=== PATIENT | male | born 1945 | race Caucasian/White ===

== ENCOUNTER 2023-02-12 08:39 | Day surgery (SDC) | payer MEDICARE ==
[~2023-02-12] VITALS: Ht 180.3 cm; Wt 92.6 kg
[~2023-02-12 08:39] MED LIST: ACET-1131 PO; ARED 2 PO; CALC-627 PO; CETI-194 PO; CYAN250010 PO; FERR240T15 PO; GUAI120015 PO; [UNRECOGNIZED DRUG - CODE] PO
[2023-02-12 09:00] VITALS: BP 132/71
[2023-02-12] MEDS ORDERED: normal saline 1000ml 1,000 ML IV PRN (09:00)
[2023-02-12 09:36] LABS: BASOPHILS # (AUTO) 0.1 X10'3 (0-0.2); BASOPHILS % (AUTO) 1.7 % (0-1); EOSINOPHILS # (AUTO) 0.2 X10'3 (0-0.9); EOSINOPHILS % (AUTO) 4.2 % (0-6); HEMATOCRIT 41.7 % (42.0-52.0); HEMOGLOBIN 13.6 g/dl (14.0-17.9); LYMPHOCYTES # (AUTO) 0.6 X10'3 (1.1-4.8); LYMPHOCYTES % (AUTO) 12.9 % (21-51); MEAN CORPUSCULAR HEMOGLOBIN 27.9 PG (27.0-31.0); MEAN CORPUSCULAR HGB CONC 32.7 g/dL (33.0-36.5); MEAN CORPUSCULAR VOLUME 85.2 FL (78-98); MEAN PLATELET VOLUME 8.2 FL (7.4-10.4); MONOCYTES # (AUTO) 0.5 X10'3 (0-0.9); NEUTROPHILS # (AUTO) 3.3 X10'3 (1.8-7.7); NEUTROPHILS % (AUTO) 71.2 % (42-75); PLATELET COUNT 187 X10'3 (140-440); RED BLOOD COUNT 4.89 X10'6 (4.70-6.10); RED CELL DISTRIBUTION WIDTH 14.1 % (11.5-14.5); WHITE BLOOD COUNT 4.6 X10'3 (4.5-11.0)
[2023-02-12] MEDS ORDERED: fentaNYL/PF 50MCG/1 ML 2ML syringe ONE (09:45)
[2023-02-12] MEDS ORDERED: midazolam 1 mg/ML 2ml injection ONE (09:45)
[2023-02-12] MEDS ORDERED: heparin sodium, porcine/PF 100unit/ml 5ML syringe ONE (09:52)
[2023-02-12 10:45] VITALS: BP 107/68
[2023-02-12 11:00] VITALS: BP 116/76
[2023-02-12 11:15] VITALS: BP 125/72
[2023-02-12 11:30] VITALS: BP 113/78
== END 2023-02-12 11:50 | disposition home or self-care (01) ==
LOC: SSTAY O 08:39
PROVIDERS: ATTEND Radiology Vascular & Interventional Radiology
DX: C20 Malignant neoplasm of rectum (principal); Z79.899 Other long term (current) drug therapy; Z79.01 Long term (current) use of anticoagulants
CPT/HCPCS: 36415; 36561; 76937; 77001; 85025; 85610; 99152; 99153; C1788; C1894; J1642; J2250; J3010; J7030; A4620